=== PATIENT | male | born 1965 | race Caucasian/White ===

== ENCOUNTER 2017-12-03 16:07 | Emergency (ER) | payer BC ==
--- NOTE | 2017-12-03 16:13 | ER Report ---
History and Physical Time Seen By MD: 16:13 HPI/ROS CHIEF COMPLAINT: Lightheadedness, nausea, chest discomfort HISTORY OF PRESENT ILLNESS: 51-year-old male patient presents to emergency room with complaint of lightheadedness, nausea and chest discomfort. Patient states that he is driving from [place] to [place]. He states he lives in [place] and took his daughter out to [place] to go to school. He states that he was driving and was just outside of [place] when he started feeling lightheaded. He states that he continued to move on. He states that he felt very lightheaded and round pulled over a couple times and stopped to rest a couple of times. He states he got up and walked around a little bit, but did not seem to make his lightheadedness any better nor did seem make it worse. He states that he does have a long-standing history of blood clots is currently taking Eliquis. Patient states that he is not had any problems with blood clots since he changed to Eliquis. He denies having any blood in his stool, he denies having any vomiting. Patient states he has been nauseated. REVIEW OF SYSTEMS: Respiratory: No cough, no dyspnea. Cardiovascular: No chest pain, no palpitations. Gastrointestinal: As noted above Musculoskeletal: No back pain. Allergies: Coded Allergies: No Known Drug Allergies (Unverified , 12/03/17) Home Meds Reported Medications Apixaban (ELIQUIS) 5 Mg Tablet, 5 MG PO BID 12/03/17 Past Medical/Surgical History Patient has a past medical history of DVT saddle PE, Patient has surgical history of knee surgery. Reviewed Nurses Notes: Yes Constitutional Vital Sign - Last 24 Hours 12/03/17 12/03/17 12/03/17 12/03/17 16:14 16:14 16:21 16:22 Temp 98.0 Pulse 81 76 Resp 18 B/P (MAP) 142/93 (109) 142/93 121/88 (99) Pulse Ox 91 93 O2 Delivery Room Air 12/03/17 12/03/17 12/03/17 12/03/17 16:37 16:52 17:22 17:27 Pulse 75 70 68 Resp 24 17 Pulse Ox 93 90 93 94 12/03/17 12/03/17 12/03/17 12/03/17 17:42 17:57 18:12 18:27 Pulse 72 ? 69 Resp 17 17 24 Pulse Ox 87 88 12/03/17 12/03/17 12/03/17 12/03/17 18:42 18:57 19:02 19:17 Pulse 74 ??? 67 65 Resp 21 19 17 Pulse Ox 89 87 90 12/03/17 12/03/17 12/03/17 19:32 19:47 19:53 Pulse 72 72 Resp 17 18 B/P (MAP) 126/91 (103) Pulse Ox 88 88 Intake and Output 12/03/17 12/03/17 12/04/17 15:00 23:00 07:00 Intake Total 1000 ml Balance 1000 ml Physical Exam General Appearance: The patient is alert, has no immediate need for airway protection and no current signs of toxicity. Respiratory: Chest is non tender, lungs are clear to auscultation. Cardiac: regular rate and rhythm Gastrointestinal: Abdomen is soft and non tender, no masses, bowel sounds normal. Musculoskeletal: Neck: Neck is supple and non tender. Extremities have full range of motion and are non tender. Skin: No rashes or lesions. Neuro: Patient is alert and oriented 4. Patient had a negative [place]-Hallpike maneuver. DIFFERENTIAL DIAGNOSIS: After history and physical exam differential diagnosis was considered for dizziness including but not limited to peripheral and central causes of vertigo, orthostatic causes including dehydration, and blood loss. Medical Decision Making Data Points Result Diagram: 12/03/17 1622 12/03/17 1622 Laboratory Hematology Test 12/03/17 16:15 12/03/17 16:22 12/03/17 19:08 Urine Color Colorless Urine Clarity Clear Urine pH 7.0 pH (4.8-9.5) Urine Specific [place] 1.001 Urine Protein Negative mg/dL (NEGATIVE) Urine Glucose (UA) Negative mg/dL (NEGATIVE) Urine Ketones Negative mg/dL (NEGATIVE) Urine Blood Negative (NEGATIVE) Urine Nitrite Negative (NEGATIVE) Urine Bilirubin Negative (NEGATIVE) Urine Urobilinogen Negative mg/dL (0.2-1.9) Urine Leukocyte Esterase Negative (NEGATIVE) Urine RBC <1 /HPF (0-2/HPF) Urine WBC None /HPF (0-5/HPF) Urine Squamous Epithelial Cells None /LPF (</=FEW) Urine Bacteria Negative /HPF (NONE-FEW) Urine Mucus None /HPF (NONE-FEW) Red Blood Count 5.59 M/uL (4.00-5.60) Mean Corpuscular Volume 89.7 fL (80.0-96.0) Mean Corpuscular Hemoglobin 31.1 pg (26.0-33.0) Mean Corpuscular Hemoglobin Concent 34.7 g/dL (32.0-36.0) Red Cell Distribution Width 13.8 % (11.5-14.5) Mean Platelet Volume 9.5 fL (7.2-11.1) Neutrophils (%) (Auto) 69.5 % (39.4-72.5) Lymphocytes (%) (Auto) 20.4 % (17.6-49.6) Monocytes (%) (Auto) 7.7 % (4.1-12.4) Eosinophils (%) (Auto) 2.0 % (0.4-6.7) Basophils (%) (Auto) 0.4 % (0.3-1.4) Nucleated RBC Relative Count (auto) 0.0 /100WBC Neutrophils # (Auto) 4.3 K/uL (2.0-7.4) Lymphocytes # (Auto) 1.3 K/uL (1.3-3.6) Monocytes # (Auto) 0.5 K/uL (0.3-1.0) Eosinophils # (Auto) 0.1 K/uL (0.0-0.5) Basophils # (Auto) 0.0 K/uL (0.0-0.1) Nucleated RBC Absolute Count (auto) 0.00 K/uL Prothrombin Time 12.3 seconds (12.0-14.4) Prothromb Time International Ratio 0.91 Activated Partial Thromboplast Time 30 seconds (23-35) Sodium Level 142 mmol/L (137-145) Potassium Level 4.2 mmol/L (3.5-5.0) Chloride Level 102 mmol/L (98-107) Carbon Dioxide Level 30 mmol/L (22-30) Blood Urea Nitrogen 12 mg/dl (9-21) Creatinine 1.20 mg/dl (0.66-1.25) Glomerular Filtration Rate Calc > 60.0 Random Glucose 101 mg/dl (75-110) Calcium Level 9.3 mg/dl (8.4-10.2) Total Bilirubin 0.6 mg/dl (0.2-1.3) Aspartate Amino Transf (AST/SGOT) 26 U/L (0-35) Alanine Aminotransferase (ALT/SGPT) 32 U/L (0-56) Alkaline Phosphatase 64 U/L (0-126) B-Type Natriuretic Peptide 25 pg/ml (0-100) Total Protein 8.1 g/dl (6.3-8.2) Albumin 4.5 g/dl (3.5-5.0) Troponin I < 0.012 ng/ml Chemistry Test 12/03/17 16:15 12/03/17 16:22 12/03/17 19:08 Urine Color Colorless Urine Clarity Clear Urine pH 7.0 pH (4.8-9.5) Urine Specific [place] 1.001 Urine Protein Negative mg/dL (NEGATIVE) Urine Glucose (UA) Negative mg/dL (NEGATIVE) Urine Ketones Negative mg/dL (NEGATIVE) Urine Blood Negative (NEGATIVE) Urine Nitrite Negative (NEGATIVE) Urine Bilirubin Negative (NEGATIVE) Urine Urobilinogen Negative mg/dL (0.2-1.9) Urine Leukocyte Esterase Negative (NEGATIVE) Urine RBC <1 /HPF (0-2/HPF) Urine WBC None /HPF (0-5/HPF) Urine Squamous Epithelial Cells None /LPF (</=FEW) Urine Bacteria Negative /HPF (NONE-FEW) Urine Mucus None /HPF (NONE-FEW) White Blood Count 6.2 k/uL (4.5-11.0) Red Blood Count 5.59 M/uL (4.00-5.60) Hemoglobin 17.4 g/dL (14.0-18.0) Hematocrit 50.2 % (42.0-52.0) Mean Corpuscular Volume 89.7 fL (80.0-96.0) Mean Corpuscular Hemoglobin 31.1 pg (26.0-33.0) Mean Corpuscular Hemoglobin Concent 34.7 g/dL (32.0-36.0) Red Cell Distribution Width 13.8 % (11.5-14.5) Platelet Count 174 K/uL (150-450) Mean Platelet Volume 9.5 fL (7.2-11.1) Neutrophils (%) (Auto) 69.5 % (39.4-72.5) Lymphocytes (%) (Auto) 20.4 % (17.6-49.6) Monocytes (%) (Auto) 7.7 % (4.1-12.4) Eosinophils (%) (Auto) 2.0 % (0.4-6.7) Basophils (%) (Auto) 0.4 % (0.3-1.4) Nucleated RBC Relative Count (auto) 0.0 /100WBC Neutrophils # (Auto) 4.3 K/uL (2.0-7.4) Lymphocytes # (Auto) 1.3 K/uL (1.3-3.6) Monocytes # (Auto) 0.5 K/uL (0.3-1.0) Eosinophils # (Auto) 0.1 K/uL (0.0-0.5) Basophils # (Auto) 0.0 K/uL (0.0-0.1) Nucleated RBC Absolute Count (auto) 0.00 K/uL Prothrombin Time 12.3 seconds (12.0-14.4) Prothromb Time International Ratio 0.91 Activated Partial Thromboplast Time 30 seconds (23-35) Glomerular Filtration Rate Calc > 60.0 Calcium Level 9.3 mg/dl (8.4-10.2) Total Bilirubin 0.6 mg/dl (0.2-1.3) Aspartate Amino Transf (AST/SGOT) 26 U/L (0-35) Alanine Aminotransferase (ALT/SGPT) 32 U/L (0-56) Alkaline Phosphatase 64 U/L (0-126) B-Type Natriuretic Peptide 25 pg/ml (0-100) Total Protein 8.1 g/dl (6.3-8.2) Albumin 4.5 g/dl (3.5-5.0) Troponin I < 0.012 ng/ml Coagulation Test 12/03/17 16:22 Prothrombin Time 12.3 seconds Prothromb Time International Ratio 0.91 Activated Partial Thromboplast Time 30 seconds Urinalysis Test 12/03/17 16:15 Urine Color Colorless Urine Clarity Clear Urine pH 7.0 pH (4.8-9.5) Urine Specific [place] 1.001 Urine Protein Negative mg/dL (NEGATIVE) Urine Glucose (UA) Negative mg/dL (NEGATIVE) Urine Ketones Negative mg/dL (NEGATIVE) Urine Blood Negative (NEGATIVE) Urine Nitrite Negative (NEGATIVE) Urine Bilirubin Negative (NEGATIVE) Urine Urobilinogen Negative mg/dL (0.2-1.9) Urine Leukocyte Esterase Negative (NEGATIVE) Urine RBC <1 /HPF (0-2/HPF) Urine WBC None /HPF (0-5/HPF) Urine Squamous Epithelial Cells None /LPF (</=FEW) Urine Bacteria Negative /HPF (NONE-FEW) Urine Mucus None /HPF (NONE-FEW) EKG/Imaging EKG Interpretation 12 lead EKG: Rhythm: normal sinus rhythm with a ventricular rate of 75 bpm [place]: normal QRS: normal ST segments: Nonspecific T-wave abnormality. Imaging CTA CHEST WW/O CNTR (PULM ANG) COMPARISONS: None. ADDITIONAL PERTINENT HISTORY: Lightheadedness with history of DVT and PE. TECHNIQUE: Multiple axial images are obtained from the lung apices through the upper abdomen during the IV administration of contrast material. 2-D and 3-D reformatted images were obtained off the axial source data. One of the following dose optimization techniques was utilized in the performance of this exam: Automated exposure control; adjustment of the mA and/or kV according to the patient's size; or use of an iterative reconstruction technique. Specific details can be referenced in the facility's radiology CT exam operational policy. CONTRAST: 50mL of Isovue-370 FINDINGS: Lung parenchyma: Mild left basilar atelectatic change. Otherwise negative Pleural spaces: Negative. Heart, mediastinum and vahe: Negative. Cardiopulmonary vasculature: Pulmonary arterial structures are well opacified with contrast material and demonstrate no evidence of pulmonary emboli. Central airways: Negative Thyroid, supra- clavicular, axillary regions: Negative. Surrounding soft tissues: Negative. Upper abdominal structures: Negative. Osseous structures: Spondylitic change involving the thoracic spine. Otherwise negative IMPRESSION: 1. Left basilar atelectatic change. 2. Remaining portions of the exam are unremarkable. Specifically no evidence of underlying pulmonary emboli. Report Dictated By: Josue Powell MD at 12/03/2017 5:35 PM Report E-Signed By: Josue Powell MD at 12/03/2017 5:[address] scan without contrast COMPARISONS: None ADDITIONAL PERTINENT HISTORY: Lightheadedness TECHNIQUE: Multiple axial images were obtained from the skull base to the vertex without IV contrast. One of the following dose optimization techniques was utilized in the performance of this exam: Automated exposure control; adjustment of the mA and/or kV according to the patient's size; or use of an iterative reconstruction technique. Specific details can be referenced in the facility's radiology CT exam operational policy. FINDINGS: Midline shift: Negative Ventricles: Negative Brain parenchyma: Negative Extra-axial spaces: Negative Intracranial vasculature: Negative Osseous structures: Negative Paranasal sinuses and mastoid air cells: Mild mucosal thickening involving the left maxillary sinus. Otherwise negative Surrounding soft tissues and orbits: Negative IMPRESSION: Normal head CT scan without contrast. Report Dictated By: Josue Powell MD at 12/03/2017 7:14 PM Report E-Signed By: Josue Powell MD at 12/03/2017 7:16 PM ED Course/Re-evaluation ED Course Patient is admitted and examined, history and physical obtained. Differential diagnoses were considered. On examination lungs are clear, heart is regular, abdomen soft nontender. Patient was alert and oriented 4. Patient was able to walk without any difficulties. Getting a manipulation did not seem to affect his lightheadedness. An IV was started, CBC, CMP, troponin, EKG, CT pulmonary angiogram was done. Labs were unremarkable, troponin was negative, EKG showed nonspecific ST abnormality. CT scan of the chest was negative. I did want to go ahead and repeat the troponin make sure that his nausea wasn't a symptom of a NC. Repeat troponin was also negative. During that time patient stated he still had a perpetual lightheadedness. A CT scan of the head was done at that time. I was also negative. Discuss findings with patient. We will go ahead and discharge him home at this time. He is to follow-up with his primary care provider when he returns home. He is to follow up in ER if the lightheadedness worsens. Patient verbalized understanding and agreement with plan. Decision to Disposition Date: Dec 03, 2017 Decision to Disposition Time: 19:46 Depart Departure Latest Vital Signs Vital Signs Date Time Temp Pulse Resp B/P (MAP) Pulse Ox O2 Delivery O2 Flow Rate FiO2 12/03/17 19:53 126/91 (103) 12/03/17 19:47 72 18 88 12/03/17 16:14 98.0 Room Air Impression: Primary Impression: Light-headed feeling Condition: Improved Disposition: HOME OR SELF-CARE Patient Instructions: Lightheadedness (ED) Additional Instructions: Increase fluid intake. Get plenty of rest. Limit activity by how you are feeling. Don't drive when you are feeling lightheaded. Return to the ER if condition worsen. Follow up with your primary care provider in the next week. DEBI DESOUZA Dec 03, 2017 16:13
[2017-12-03] MEDS ORDERED: APIX5TAB PO (16:23)
[2017-12-03] MEDS ORDERED: NS(*) 0.9% 1000 ML BAG 1,000 ML IV ONE (16:29)
[2017-12-03 16:42] LABS: PLATELET COUNT, AUTOMATED 174 K/uL (150-450)
[2017-12-03 16:45] LABS: INR 0.91
[2017-12-03] MEDS ORDERED: IOPAMIDOL 76% 100 ML INFUS BTL 100 ML ONE (16:58)
[2017-12-03] MEDS ORDERED: NS(*) 0.9% 50 ML BAG 50 ML ONE (16:58)
[2017-12-03] MEDS ORDERED: ONDANSETRON 4 MG/2 ML VIAL IVP ONE (17:25)
--- NOTE | 2017-12-03 17:43 | RADIOLOGY IMAGING REPORT ---
FACILITY: [facility] [place] PATIENT NAME: Ashwini Garcia : 1965 MR: [id number] V: [id number] EXAM DATE: ORDERING PHYSICIAN: DEBI DESOUZA TECHNOLOGIST: [place] [facility] [place] : 1965 Visit/Account:[id number] Date of Sevice: 12/03/2017 CTA CHEST WW/O CNTR (PULM ANG) COMPARISONS: None. ADDITIONAL PERTINENT HISTORY: Lightheadedness with history of DVT and PE. TECHNIQUE: Multiple axial images are obtained from the lung apices through the upper abdomen during t he IV administration of contrast material. 2-D and 3-D reformatted images were obtained off the axial source data. One of the following dose optimization techniques was utilized in the performance of t his exam: Automated exposure control; adjustment of the mA and/or kV according to the patient's size; or use of an iterative reconstruction technique. Specific details can be referenced in the [facility]'s radiology CT exam operational policy. CONTRAST: 50mL of Isovue-370 FINDINGS: Lung parenchyma: Mild left basilar atelectatic change. Otherwise negative Pleural spaces: Negative. Heart, mediastinum and vahe: Negative. Cardiopulmonary vasculature: Pulmonary arterial structures are well opacified with contrast material and demonstrate no evidence of pulmonary emboli. Central airways: Negative Thyroid, supra- clavicular, axillary regions: Negative. Surrounding soft tissues: Negative. Upper abdominal structures: Negative. Osseous structures: Spondylitic change involving the thoracic spine. Otherwise negative IMPRESSION: 1. Left basilar atelectatic change. 2. Remaining portions of the exam are unremarkable. Specifically no evidence of underlying pulmonary emboli. Report Dictated By: Josue Powell MD at 12/03/2017 5:35 PM Report E-Signed By: Josue Powell MD at 12/03/2017 5:39 PM WSN:[id number]
--- NOTE | 2017-12-03 17:50 | EKG ---
[place] [facility] [place]: ALEX LAYNE : [id number] MR: [id number] V: [id number] EXAM DATE: ORDERING PHYSICIAN: DEBI DESOUZA TECHNOLOGIST: ROMANA Stark Reason : Blood Pressure : / mmHG Vent. Rate : 075 BPM Atrial Rate : 075 BPM P-R Int : 160 ms QRS Dur : 076 ms QT Int : 360 ms P-R-T Axes : 048 015 082 degrees QTc Int : 402 ms Sinus rhythm Possible left atrial enlargement Decreased R wave progression anteriorly Nonspecific T wave abnormality Abnormal ECG No previous ECGs available Confirmed by DAPHNIE SANTOYO ([id number]) on 12/04/2017 6:06:15 AM Referred By: JOSELIN Confirmed By:DAPHNIE SANTOYO
--- NOTE | 2017-12-03 19:21 | RADIOLOGY IMAGING REPORT ---
FACILITY: [facility] [place] PATIENT NAME: Ashwini Garcia : 1965 MR: [id number] V: [id number] EXAM DATE: ORDERING PHYSICIAN: DEBI DESOUZA TECHNOLOGIST: [place] [facility] [place] Ashwini Garcia : 1965 Visit/Account:[id number] Date of Sevice: 12/03/[address] scan without contrast COMPARISONS: None ADDITIONAL PERTINENT HISTORY: Lightheadedness TECHNIQUE: Multiple axial images were obtained from the skull base to the vertex without IV contrast . One of the following dose optimization techniques was utilized in the performance of this exam: Aut omated exposure control; adjustment of the mA and/or kV according to the patient's size; or use of an iterative reconstruction technique. Specific details can be referenced in the facility's radiology CT exam operational policy. FINDINGS: Midline shift: Negative Ventricles: Negative Brain parenchyma: Negative Extra-axial spaces: Negative Intracranial vasculature: Negative Osseous structures: Negative Paranasal sinuses and mastoid air cells: Mild mucosal thickening involving the left maxillary sinus. Otherwise negative Surrounding soft tissues and orbits: Negative IMPRESSION: Normal head CT scan without contrast. Report Dictated By: Josue Powell MD at 12/03/2017 7:14 PM Report E-Signed By: Josue Powell MD at 12/03/2017 7:16 PM [id number]
[2017-12-03] MEDS ORDERED: SCOPOLAMINE 1.5 MG PATCH TD ONE (19:50)
[2017-12-03] MEDS ORDERED: ONDANSETRON 4 MG ODT TH SL ONE (19:50)
[2017-12-03 19:53] VITALS: BP 126/91
== END 2017-12-03 20:01 | disposition home or self-care (01) ==
LOC: ER 16:37
DX: R42 Dizziness and giddiness (principal); Z86.718 Personal history of other venous thrombosis and embolism; R94.31 Abnormal electrocardiogram [ECG] [EKG]
CPT/HCPCS: 36415; 70450; 71275; 81001; 83880; 84484; 85025; 85610; 85730; 93005; 96361; 96374; 99284; J2405; J7030; J7050; Q9967; S0119; 82040; 82247; 82310; 82374; 82435; 82565; 82947; 84075; 84132; 84155; 84295; 84450; 84460; 84520